=== PATIENT | male | born 1990 | race African-American/Black ===

== ENCOUNTER 2017-10-19 08:25 | Emergency (ER) | payer OTHER ==
[2017-10-19 08:32] VITALS: BP 130/74; PULSE 69; TEMP 98.5; BMI 23.1
[2017-10-19] MEDS ORDERED: KETOROLAC TROMETHAMINE 60 MG/2 ML VIAL IM ONE (09:03)
[2017-10-19] MEDS ORDERED: KETOROLAC TROMETHAMINE 60 MG/2 ML VIAL ONE (09:06)
--- NOTE | 2017-10-19 09:11 | PDOC ---
History of Present Illness - General Chief Complaint: Toothache Stated Complaint: RT SIDE FACE SWELLING Time Seen by Provider: 10/19/17 09:03 History Source: Patient - History of Present Illness Initial Comments: 10/19/17 09:03 Patient with no significant past medical history presenting with complaint of left-sided face swelling and tooth pain. Patient reported he saw a dentist a few months ago and was told that he needs a root canal to the bottom and upper left tooth. The patient never followed up after the visit. Patient now reports severe tooth pain and swelling to the face. He reports pain is worse when he chews food or open her mouth wide. Denies fever, chills, body aches, headaches Timing/Duration: other (3 days) Severity: moderate Modifying Factors: worse with: other (eating) Associated Symptoms: denies: fever/chills, headaches, nausea/vomiting Past History - Past Medical History Allergies/Adverse Reactions: Allergies Allergy/AdvReac Type Severity Reaction Status Date / Time No Known Allergies Allergy Verified 10/19/17 08:28 Home Medications: Ambulatory Orders Amox-Tr/K Cl [Augmentin - 875Mg Tablet] 1 tab PO BID #14 tablet 10/19/17 Ibuprofen 800 mg PO TID PRN #20 tablet 10/19/17 COPD: No GI Disorders: Yes (acid reflux) - Immunization History Immunization Up to Date: Yes - Suicide/Smoking/Psychosocial Hx Smoking History: Current every day smoker Number of Cigarettes Smoked Daily: 3 Information on smoking cessation initiated: Yes Hx Alcohol Use: No Drug/Substance Use Hx: No Substance Use Type: None Review of Systems - Review of Systems Is the patient limited Welsh proficient: No Constitutional: No: Chills, Diaphoresis, Fever, Loss of Appetite, Malaise, Night Sweats, Weakness, Weight Stable, Unintentional Wgt. Loss, Unexplained wgt Loss, Other HEENTM: Yes: See HPI, Dental Problems (left back upper and lower molar pain), Mouth Swelling, Other (left cheek swelling). No: Eye Pain, Blurred Vision, Tearing, Recent change in vision, Double Vision, Cataracts, Ear Pain, Ocular Prothesis, Ear Discharge, Nose Pain, Nose Congestion, Tinnitus, Nose Bleeding, Hearing Loss, Throat Pain, Throat Swelling, Mouth Pain, Difficulty Swallowing Cardiac (ROS): No: Chest Pain, Edema, Irregular Heart Rate, Lightheadedness, Palpitations, Syncope, Chest Tightness, Other ABD/GI: No: Abdominal Distended, Abd. Pain w/ defecation, Blood Streaked Bowels , Constipated, Diarrhea, Difficulty Swallowing, Nausea, Poor Appetite, Poor Fluid Intake, Rectal Bleeding, Vomiting, Indigestion, Abdominal cramping, Tarry Stools, Other Musculoskeletal: Yes: Muscle Pain (left side of face). No: Symptoms Reported, See HPI, Back Pain, Gout, Joint Pain, Joint Swelling, Muscle Weakness, Neck Pain , Joint Stiffness, Other Integumentary: No: Bruising, Change in Color, Change in Hair/Nails, Dryness, Erythema, Flushing, Lesions, Lumps, Pallor, Pruritus, Rash, Sweating, Other Neurological: No: Headache, Numbness, Paresthesia, Pre-Existing Deficit, Seizure , Tingling, Tremors, Weakness, Unsteady Gait, Ataxia, Dizziness, Other All Other Systems: Reviewed and Negative *Physical Exam - Vital Signs Last Vital Signs Temp Pulse Resp BP Pulse Ox 98.5 F 69 18 130/74 98 10/19/17 08:28 10/19/17 08:28 10/19/17 08:28 10/19/17 08:28 10/19/17 08:28 - Physical Exam Comments: 10/19/17 09:08 GENERAL: Well developed, well nourished. Awake and alert. No mild distress. HEENT: Mild swelling to the left side of cheek. Moderate pain to bottom of the left molar tooth. No erythema to area and Normocephalic, atraumatic. PERRLA, EOMI. No conjunctival pallor. Sclera are non-icteric. Moist mucous membranes. Oropharynx is clear. NECK: Supple. Full ROM. No JVD. Carotid pulses 2+ and symmetric, without bruits. No thyromegaly. No lymphadenopathy. CARDIOVASCULAR: Regular rate and rhythm. No murmurs, rubs, or gallops. Distal pulses are 2+ and symmetric. PULMONARY: No evidence of respiratory distress. Lungs clear to auscultation bilaterally. No wheezing, rales or rhonchi. ABDOMINAL: Soft. Non-tender. Non-distended. No rebound or guarding. No organomegaly. Normoactive bowel sounds. MUSCULOSKELETAL Normal range of motion at all joints. No bony deformities or tenderness. No CVA tenderness. EXTREMITIES: No cyanosis. No clubbing. No edema. No calf tenderness. SKIN: Mild swelling to the left side of the cheek Nuro: No deficits to light touch and temperature in face, upper extremities and lower extremities. No motor deficits in the in face, upper extremities and lower extremities. Normoreflexic in the upper and lower extremities. Normal speech. Toes are down-going bilaterally. Gait is normal without ataxia. PSYCHIATRIC: Cooperative. Good eye contact. Appropriate mood and affect. General Appearance: Yes: Nourished, Appropriately Dressed, Mild Distress Medical Decision Making - Medical Decision Making 10/19/17 09:11 Patient with history of tooth cavity presenting with left-sided facial swelling and pain to the teeth. It is likely periodontitis. Toradol 50 mg IM given for pain. Discharge home on ibuprofen and Augmentin antibiotics dental follow-up. Patient have dental appointment on the . *DC/Admit/Observation/Transfer Diagnosis at time of Disposition: Tooth pain, Periodontitis - Discharge Dispostion Disposition: HOME Condition at time of disposition: Good Decision to Admit order: No - Prescriptions Prescriptions: Amox-Tr/K Cl [Augmentin - 875Mg Tablet] 1 tab PO BID #14 tablet Ibuprofen 800 mg PO TID PRN #20 tablet PRN Reason: Pain - Referrals Referrals: Joan Schneider MD [Primary Care Provider] - - Patient Instructions Printed Discharge Instructions: DI for Tooth Abscess, DI for Dental Pain Additional Instructions: take medication as prescribed. follow-up with dentists as scheduled - Post Discharge Activity
== END 2017-10-19 09:35 | disposition home or self-care (01) ==
LOC: JERFT 08:25
PROC: 3E0233Z Introduction of Anti-inflammatory into Muscle, Percutaneous Approach (ICD-10-PCS; principal; 2017-10-19)
DX: K08.89 Other specified disorders of teeth and supporting structures (principal); K05.319 Chronic periodontitis, localized, unspecified severity
CPT/HCPCS: 96372; 99281-25